=== PATIENT | male | born 2000 ===

== ENCOUNTER → 2019-06-10 07:28 | Outpatient (CLI) | payer OTHER, SELFPAY ==
--- NOTE | ~2019-06-10 | MR_ITS ---
EXAMINATION: MR knee RT wo con DATE: 06/10/2019 08:11 INDICATION: Right knee pain. TECHNIQUE: Magnetic resonance imaging (MRI) of the right knee was performed without intravenous contr ast. Sequences included axial PD-weighted FS FSE, coronal PD-weighted FSE and PD-weighted FS FSE, sag ittal PD-weighted FSE, and sagittal T2-weighted FS FSE. COMPARISON: None. FINDINGS: Medial compartment: There is a vertical tear of posterior horn of medial meniscus. Medial compartment cartilage is normal . Lateral compartment: Lateral meniscus is normal. Lateral compartment cartilage is normal. Patellofemoral compartment: Patellar cartilage is normal. Trochlear cartilage is normal. There is mild subchondral edema-like mar row signal intensity of central trochlea. Ligaments and tendons: The anterior and posterior cruciate ligaments are normal. Medial collateral ligament and lateral norberto ateral ligament complex are normal. The patellar tendon is normal. Fluid: There is a small knee joint effusion. There is a small Mcneill's cyst. IMPRESSION: 1. Tear of medial meniscus. 2. Small knee joint effusion. 3. Small Mcneill's cyst. Reviewed, dictated and finalized at location A. [employer]
== END ==
PROVIDERS: PCP Orthopaedic Surgery; Visit Provider Orthopaedic Surgery
DX: S83.241A Other tear of medial meniscus, current injury, right knee, initial encounter (principal); X58.XXXA Exposure to other specified factors, initial encounter; M71.21 Synovial cyst of popliteal space [Baker], right knee; M25.461 Effusion, right knee
CPT/HCPCS: 73721